=== PATIENT | female | born 1985 | race Caucasian/White ===

== ENCOUNTER 2018-03-23 14:22 | Emergency (ER) | payer MEDICAID ==
--- NOTE | 2018-03-23 16:42 | EDPHY ---
H & P Stated Complaint: R lower abd pain x 2 wks worse today w/ nausea and diarrhea Time Seen by Provider: 03/23/18 16:37 HPI/ROS: CHIEF COMPLAINT: Abdominal pain, diarrhea HISTORY OF PRESENT ILLNESS: The patient presents the emergency department with a 2 week history of intermittent crampy abdominal pain and diarrhea. The patient denies any hematemesis or hematochezia. The patient denies any recent antibiotic use or travel outside the [place]. Past medical history is only significant for a single history of an ovarian cyst. The patient denies any uterine bleeding. She denies any fever, cough or congestion. She denies any urinary complaints. REVIEW OF SYSTEMS: A comprehensive 10 point review of systems is otherwise negative aside from elements mentioned in the history of present illness. Source: Patient Exam Limitations: No limitations - Personal History LMP (Females 10-55): IUD In Place - Medical/Surgical History Hx Asthma: No Hx Chronic Respiratory Disease: No Hx Diabetes: No Hx Cardiac Disease: No Hx Renal Disease: No Hx Cirrhosis: No Hx Alcoholism: No Hx HIV/AIDS: No Hx Splenectomy or Spleen Trauma: No Other PMH: breast cyst removed - Social History Smoking Status: Never smoked - Physical Exam Exam: General Appearance: Alert, no distress Eyes: Pupils equal and round no pallor or injection ENT, Mouth: Mucous membranes moist Respiratory: There are no retractions, lungs are clear to auscultation Cardiovascular: Regular rate and rhythm Gastrointestinal: Diffuse mild tenderness to palpation, normal bowel sounds, no peritoneal signs Neurological: 5/5 strength noted all 4 extremities Skin: Warm and dry, no rashes Musculoskeletal: Neck is supple nontender Extremities: symmetrical, full range of motion Psychiatric: Patient is oriented X 3, there is no agitation Constitutional: Initial Vital Signs Temperature (C) 36.5 C 03/23/18 14:25 Heart Rate 87 03/23/18 14:25 Respiratory Rate 16 03/23/18 14:25 Blood Pressure 122/68 H 03/23/18 14:25 O2 Sat (%) 97 03/23/18 14:25 O2 Delivery Mode Room Air Allergies/Adverse Reactions: No Known Allergies Allergy (Unverified 03/23/18 14:25) Home Medications: Medication Instructions Recorded Dicyclomine [Bentyl 20 MG (*)] 20 mg PO QID PRN #20 tab 03/23/18 Ondansetron Odt [Zofran Odt] 4 mg PO Q4PRN PRN #20 tab 03/23/18 Medical Decision Making - Diagnostics Imaging Results: Imaging Impressions Abdomen CT 03/23/18 18:19 Impression: 1. Follicular cyst right adnexa. Otherwise, no significant abnormality seen. 2. No CT evidence of appendicitis, abscess or bowel obstruction. 3. IUD in place within the endometrial canal. Findings discussed with Jim Greco M.D. at 18:52 hour, 03/23/2018. ED Course/Re-evaluation: The patient presents the ED with several weeks of intermittent crampy abdominal pain and diarrhea. The patient has no significant past medical history. The patient arrives and is noted to have only mild generalized tenderness on exam without specific tenderness to palpation in her right lower quadrant or right upper quadrant. She has no peritoneal signs. The patient had an IV established. She received a L of normal saline. She received Toradol. I reexamined the patient at 6:20 p.m.. She continues to have mild ongoing tenderness. She seems to localize to the right lower quadrant. She has low probability examination for appendicitis however does not 0 probability. We discussed the risks and benefits of CT scanning. CT scan of the abdomen pelvis demonstrates no evidence of peritonitis, obstruction, perforation or appendicitis. Patient will be discharged home with a prescription for Zofran and Bentyl. The patient is advised to return to the ED for markedly increasing pain or other concerns. Differential Diagnosis: Differential diagnosis considered includes appendicitis, mesenteric adenitis, gastroenteritis, perforation, obstruction, ectopic - Data Points Laboratory Results: Laboratory Results 03/23/18 16:42 03/23/18 16:42 03/23/18 03/23/18 03/23/18 16:42 16:42 16:42 WBC 10.97 10^3/uL H 10^3/uL (3.80-9.50) RBC 4.70 10^6/uL 10^6/uL (4.18-5.33) Hgb 14.3 g/dL g/dL (12.6-16.3) Hct 42.6 % % (38.0-47.0) MCV 90.6 fL fL (81.5-99.8) MCH 30.4 pg pg (27.9-34.1) MCHC 33.6 g/dL g/dL (32.4-36.7) RDW 11.9 % % (11.5-15.2) Plt Count 337 10^3/uL 10^3/uL (150-400) MPV 9.6 fL fL (8.7-11.7) Neut % (Auto) 64.8 % % (39.3-74.2) Lymph % (Auto) 24.1 % % (15.0-45.0) [place] % (Auto) 7.7 % % (4.5-13.0) Eos % (Auto) 2.5 % % (0.6-7.6) Baso % (Auto) 0.6 % % (0.3-1.7) Nucleat RBC Rel Count 0.0 % % (0.0-0.2) Absolute Neuts (auto) 7.11 10^3/uL H 10^3/uL (1.70-6.50) Absolute Lymphs (auto) 2.64 10^3/uL 10^3/uL (1.00-3.00) Absolute Monos (auto) 0.85 10^3/uL H 10^3/uL (0.30-0.80) Absolute Eos (auto) 0.27 10^3/uL 10^3/uL (0.03-0.40) Absolute Basos (auto) 0.07 10^3/uL 10^3/uL (0.02-0.10) Absolute Nucleated RBC 0.00 10^3/uL 10^3/uL (0-0.01) Immature Gran % 0.3 % % (0.0-1.1) Immature Gran # 0.03 10^3/uL 10^3/uL (0.00-0.10) Sodium 137 mEq/L mEq/L (135-145) Potassium 4.2 mEq/L mEq/L (3.5-5.2) Chloride 102 mEq/L mEq/L (97-110) Carbon Dioxide 24 mEq/l mEq/l (22-31) Anion Gap 11 mEq/L mEq/L (6-14) BUN 16 mg/dL mg/dL (7-23) Creatinine 0.7 mg/dL mg/dL (0.6-1.0) Estimated GFR > 60 Glucose 79 mg/dL mg/dL (70-100) Calcium 9.6 mg/dL mg/dL (8.5-10.4) Total Bilirubin 0.5 mg/dL mg/dL (0.1-1.4) Conjugated Bilirubin 0.1 mg/dL mg/dL (0.0-0.5) Unconjugated Bilirubin 0.4 mg/dL mg/dL (0.0-1.1) AST 20 IU/L IU/L (14-46) ALT 24 IU/L IU/L (9-52) Alkaline Phosphatase 61 IU/L IU/L (38-126) Total Protein 7.7 g/dL g/dL (6.3-8.2) Albumin 4.8 g/dL g/dL (3.5-5.0) Lipase 128 IU/L IU/L (23-300) Beta HCG, Qual NEGATIVE Urine Color Urine Appearance Urine pH Ur Specific [place] Urine Protein Urine Ketones Urine Blood Urine Nitrate Urine Bilirubin Urine Urobilinogen Ur Leukocyte Esterase Urine Glucose 03/23/18 14:40 WBC RBC Hgb Hct MCV MCH MCHC RDW Plt Count MPV Neut % (Auto) Lymph % (Auto) [place] % (Auto) Eos % (Auto) Baso % (Auto) Nucleat RBC Rel Count Absolute Neuts (auto) Absolute Lymphs (auto) Absolute Monos (auto) Absolute Eos (auto) Absolute Basos (auto) Absolute Nucleated RBC Immature Gran % Immature Gran # Sodium Potassium Chloride Carbon Dioxide Anion Gap BUN Creatinine Estimated GFR Glucose Calcium Total Bilirubin Conjugated Bilirubin Unconjugated Bilirubin AST ALT Alkaline Phosphatase Total Protein Albumin Lipase Beta HCG, Qual Urine Color YELLOW Urine Appearance HAZY Urine pH 6.0 (5.0-7.5) Ur Specific [place] 1.011 (1.002-1.030) Urine Protein NEGATIVE (NEGATIVE) Urine Ketones NEGATIVE (NEGATIVE) Urine Blood NEGATIVE (NEGATIVE) Urine Nitrate NEGATIVE (NEGATIVE) Urine Bilirubin NEGATIVE (NEGATIVE) Urine Urobilinogen NEGATIVE EU EU (0.2-1.0) Ur Leukocyte Esterase NEGATIVE (NEGATIVE) Urine Glucose NEGATIVE (NEGATIVE) Medications Given: Discontinued Medications Ketorolac Tromethamine (Toradol) 15 mg IVP EDNOW ONE Stop: 03/23/18 17:14 Last Admin: 03/23/18 17:39 Dose: 15 mg Departure - Departure Disposition: Home, Routine, Self-Care Clinical Impression: Abdominal pain Condition: Good Instructions: Acute Abdominal Pain (ED) Additional Instructions: Sometimes we are unable to diagnose an obvious cause of abdominal pain in the Emergency Department. Based upon our evaluation today, I believe your symptoms are likely secondary to a mild viral illness. Because more serious conditions can be difficult to diagnose early in the course of their presentation, we ask that you return to the Emergency Department in 8-12 hours for a recheck if you are still having pain. This is necessary to exclude the development of a more serious condition such as appendicitis or other intra-abdominal emergency. In the event your pain markedly increases before that time or you develop intractable vomiting or fever return to the Emergency Department immediately. Zofran as needed for nausea Bentyl as needed for discomfort Please follow up with a nuclear licensing engineer you have been referred to for any ongoing mild symptoms. Referrals: Dorina Levin MD [Medical Doctor] - As per Instructions
[2018-03-23 17:07] LABS: PLATELET COUNT 337 10^3/uL (150-400)
[2018-03-23] MEDS ORDERED: KETOROLAC 15 MG/1 ML SDV IVP ONE (17:13)
[2018-03-23] MEDS ORDERED: IOPAMIDOL (ISOVUE-300) 100 ML BTL ONE (18:23)
[2018-03-23 19:45] VITALS: BP 120/43
== END 2018-03-23 19:44 | disposition home or self-care (01) ==
DX: R10.30 Lower abdominal pain, unspecified (principal); R19.7 Diarrhea, unspecified
CPT/HCPCS: 96374; J1885; Q9967

== ENCOUNTER 2018-08-01 10:12 | Emergency (ER) | payer MEDICAID ==
--- NOTE | 2018-08-01 10:25 | EDPHY ---
General Time Seen by Provider: 08/01/18 10:25 Narrative: CLINICAL IMPRESSION: Acute on chronic left ankle and foot pain ASSESSMENT/PLAN: Patient is a 33-year-old female with no significant medical history who presents to the emergency department with acute on chronic left foot and ankle pain after an injury sustained months prior. Patient is in no acute distress. Physical examination reveals tenderness to palpation inferior to the lateral malleolus as well as mildly at the base of the 5th metatarsal. X-ray foot and ankle revealed no acute fracture or dislocation. History of physical examination is consistent with acute on chronic left foot and ankle pain secondary to remote injury; no findings to suggest acute fracture, dislocation, septic joint, compartment syndrome or neurovascular compromise. The patient was placed in a Garcia boot and provided a podiatry referral. She understands the importance of follow-up. ED PROCEDURES: Procedure: Splint placement. Garcia boot was applied. After application of the splint I returned and re- examined the patient. The Garcia boot was adequately immobilizing the ankle and the patient's circulation and sensation was intact. CHIEF COMPLAINT: Left ankle and foot pain HPI: Patient is a 33-year-old female with no significant medical history who presents to the emergency department with acute on chronic left ankle and foot pain. Patient reports a remote ankle injury, she has been having issues with intermittent swelling and pain since that time. Patient reports a severe ankle sprain with prolonged recovery, intermittently having significant swelling after long periods of time on her feet or when hiking. Patient reports 2 weeks ago she had significant swelling that took quite some time to resolve, she denies any injury or trauma. She has been able to ambulate however experiences increased pain with bearing weight. She denies any knee pain or calf pain. She denies any numbness or tingling of the extremity. She denies previous surgery to this ankle or foot. She reports she has been trying to establish care with a primary care provider however has been unable to do so. ROS: Review of systems otherwise negative, please see HPI. PHYSICAL EXAM: General Appearance: Well-appearing, no acute distress. Respiratory: There are no retractions, lungs are clear to auscultation. Cardiac: Regular rate and rhythm, no murmurs or gallops. Gastrointestinal: Abdomen is soft, nontender, bowel sounds normal, no masses/ hernia, no rigidity, guarding or focal peritoneal findings. Skin: Warm, dry, no rashes. Upper Extremities: Intact distal pulses, Full range of motion intact, no tenderness, no ecchymosis or edema. Lower Extremities: Right lower extremity is unremarkable. Intact distal pulses, No edema, No tenderness, No cyanosis, full range of motion intact. Left lower extremity: Left knee nontender with full range of motion, there is no tenderness at the proximal fibular head. Patient has tenderness overlying the lateral malleolus and inferior to the malleolus. She has no medial malleolar tenderness or navicular tenderness. She is also mildly tender at the base of 5th metatarsal. No 1st webspace pain. No appreciable edema, erythema or abrasions. Limited range of motion secondary to pain. Two point discrimination is intact distally. 2+ dorsalis pedis bilaterally. No calf tenderness bilaterally. MEDICAL DECISION MAKING: Patient was seen independently. Secondary supervising physician at time of evaluation was Dr. Dean, he did not evaluate this patient. Diagnosis: Acute on chronic ankle and foot pain Summary: See Assessment and Plan for summary of ED visit Clinical lab tests: Not applicable. Independent visualization of images, tracing, or specimens: Yes. Decision to obtain medical records or history from someone other than the patient: No Review / Summarize previous medical records: Yes Patient Progress: Stable, discharged. - Diagnostics Imaging Results: Imaging Impressions Ankle X-Ray 08/01/18 10:24 Impression: Minimal degenerative changes. Otherwise normal. Foot X-Ray 08/01/18 10:24 Impression: Negative. No explanation for pain. - History Smoking Status: Never smoked - Objective Vital Signs: Initial Vital Signs Temperature (C) 36.8 C 08/01/18 10:18 Heart Rate 88 08/01/18 10:18 Respiratory Rate 14 08/01/18 10:18 Blood Pressure 117/84 H 08/01/18 10:18 O2 Sat (%) 99 08/01/18 10:18 O2 Delivery Mode Room Air Allergies/Adverse Reactions: No Known Allergies Allergy (Unverified 03/23/18 14:25) Home Medications: Medication Instructions Recorded Dicyclomine [Bentyl 20 MG (*)] 20 mg PO QID PRN #20 tab 03/23/18 Ondansetron Odt [Zofran Odt] 4 mg PO Q4PRN PRN #20 tab 03/23/18 Departure - Departure Disposition: Home, Routine, Self-Care Clinical Impression: Foot pain, left Ankle pain, left Qualifiers: Chronicity: unspecified Qualified Code(s): M25.572 - Pain in left ankle and joints of left foot Condition: Good Instructions: Metatarsalgia (DC) Additional Instructions: DISCHARGE INSTRUCTIONS FROM YOUR PROVIDER Thank you for visiting our emergency department today. Please keep in mind that discharge from the emergency department does not mean that there is nothing wrong - it simply means that we have not identified an emergency condition that requires further evaluation or treatment in the hospital. You should always plan to follow up with primary care for re-evaluation of your condition in the next 2-3 days. Rest, ice (on and off), elevate the foot and ankle as much possible above the level of the heart to decrease pain and swelling. Ambulate as tolerated. For pain, Ibuprofen 400 mg every 6 hours. Do not exceed 2400 mg of ibuprofen in 24 hours. Stop taking this if it upsets her stomach. Tylenol 500 mg every 6 hours. Do not exceed 3000 mg in a 24-hour period. Continue your regular medications as prescribed. Return for increased pain or swelling, numbness, tingling or foot or toes, calf pain, paleness or coolness of the foot or toes or for any worsening or worrisome symptoms. People present with illnesses and injuries in different ways, and it is always possible that we have missed something. Again, thank you for choosing our emergency department. We hope that you feel better. Referrals: Nataliia Dickinson MD [Medical Doctor] - As per Instructions (Please establish care with a primary care provider) Mani Berkowitz MD [Doctor of Podiatric Medicine] - 2-3 days, call for appt. ( Please schedule an appointment with Podiatry)
[2018-08-01 12:04] VITALS: BP 121/69
== END 2018-08-01 12:46 | disposition home or self-care (01) ==
DX: M25.572 Pain in left ankle and joints of left foot (principal); G89.29 Other chronic pain
CPT/HCPCS: L4386